=== PATIENT | female | born 1960 | race Two or more races ===

== ENCOUNTER 2016-06-02 14:11 | Emergency (ER) | payer MEDICAID ==
[~2016-06-02] VITALS: Ht 154.9 cm; Wt 86.2 kg
[2016-06-02 14:45] LABS: BILIRUBIN,URINE SMALL (NEG); GLUCOSE,URINE NEGATIVE (NEG); NITRITE,URINE NEGATIVE (NEG); PROTEIN,URINE 30 mg/dL (NEG-TRACE); UROBILINOGEN,URINE 0.2 mg/dL (0.2 mg/dL)
[2016-06-02 14:47] VITALS: BP 166/84
[2016-06-02 14:58] LABS: RBC,URINE TNTC /HPF (0-2)
[2016-06-02 14:59] LABS: BACTERIA,URINE FEW /HPF (0-FEW); SQUAMOUS EPITHELIAL CELL,UR MOD /LPF
[2016-06-02] MEDS ORDERED: NITR100C62 PO (15:16)
[2016-06-02] MEDS ORDERED: PHEN100T82 PO (15:16)
--- NOTE | 2016-06-02 15:16 | PHYS DOC ---
Past Medical History Past Medical History: No Pertinent History Past Surgical History: Appendectomy, Hysterectomy Alcohol Use: None Drug Use: None Adult General Chief Complaint Chief Complaint: BLOOD IN URINE [facility] HPI Patient is a 55 year old female presents emergency department stating that today she woke up and started having urinary frequency urgency or pain with urination. She states she is also been having some itching she denies any vaginal discharge. She denies any fever, chills or any nausea vomiting. She did state she took one Macrobid earlier today that was a friend's. She states that this medication had come from [facility]. She states she would prefer not to take the Macrobid that was provided to her she would is not sure of the safety. Review of Systems Review of Systems Constitutional: Denies fever or chills [] Eyes: Denies change in visual acuity, redness, or eye pain [] HENT: Denies nasal congestion or sore throat [] Respiratory: Denies cough or shortness of breath [] Cardiovascular: No additional information not addressed in HPI [] GI: Denies abdominal pain, nausea, vomiting, bloody stools or diarrhea [] : dysuria and hematuria [] Musculoskeletal: Denies back pain or joint pain [] Integument: Denies rash or skin lesions [] Neurologic: Denies headache, focal weakness or sensory changes [] Allergies Allergies Allergies Coded Allergies Type Severity Reaction Last Updated Verified No Known Drug Allergies 06/02/16 No Physical Exam Physical Exam Constitutional: Well developed, well nourished, no acute distress, non-toxic appearance. [] HENT: Normocephalic, atraumatic, bilateral external ears normal, oropharynx moist, no oral exudates, nose normal. [] Eyes: PERRLA, EOMI, conjunctiva normal, no discharge. [] Neck: Normal range of motion, no tenderness, supple, no stridor. [] Cardiovascular:Heart rate regular rhythm, no murmur [] Lungs & Thorax: Bilateral breath sounds clear to auscultation [] Skin: Warm, dry, no erythema, no rash. [] Back: No tenderness, no CVA tenderness. [] Extremities: No tenderness, no cyanosis, no clubbing, ROM intact, no edema. [] Neurologic: Alert and oriented X 3, normal motor function, normal sensory function, no focal deficits noted. [] Psychologic: Affect normal, judgement normal, mood normal. [] Current Patient Data Vital Signs Vital Signs Date Time Temp Pulse Resp B/P Pulse Ox O2 Delivery O2 Flow Rate FiO2 06/02/16 14:47 98.1 72 20 99 Room Air 98.1 Lab Values Laboratory Tests Test 06/02/16 14:33 Urine Collection Type Unknown Urine Color Dk yellow Urine Clarity Cloudy Urine pH 6.0 Urine Specific [place] 1.020 Urine Protein 30mg/dL (NEG-TRACE) Urine Glucose (UA) Negativemg/dL (NEG) Urine Ketones (Stick) Negativemg/dL (NEG) Urine Blood Large (NEG) Urine Nitrite Negative (NEG) Urine Bilirubin Small (NEG) Urine Urobilinogen Dipstick 0.2mg/dL (0.2 mg/dL) Urine Leukocyte Esterase Moderate (NEG) Urine RBC Tntc/HPF (0-2) Urine WBC 11-20/HPF (0-4) Urine Squamous Epithelial Cells Mod/LPF Urine Bacteria Few/HPF (0-FEW) Urine Mucus Mod/LPF EKG EKG [] Radiology/Procedures Radiology/Procedures [] Course & Med Decision Making Course & Med Decision Making Pertinent Labs and Imaging studies reviewed. (See chart for details) Urine was positive for blood as well as leukocyte Estrace. Does appear that the urine was contaminated. Patient is exhibiting signs of dysuria. Patient will be placed on Macrobid. Patient was encouraged to drink plenty of fluids such as water and cranberry juice. She was recommended to avoid cranberry juice cocktail , caffeine, carbonated beverages, citrus fruits and alcohol sees her considered irritants to the bladder. Patient was provided with signs and symptoms to return back to the emergency department. The patient agrees with discharge instructions, treatment regimens and follow-up recommendations. Patient will be discharged home in stable condition. [] Dragon Disclaimer Dragon Disclaimer This electronic medical record was generated, in whole or in part, using a voice recognition dictation system. Departure Departure Impression: Primary Impression: Dysuria Disposition: HOME, SELF-CARE Condition: STABLE Patient Instructions: Dysuria-Brief Additional Instructions: Activity as tolerated. Medications as prescribed. Pyridium will cause her urine to turn orange future. This will stating occluding. Drink plenty of fluids such as water and cranberry juice. Avoid cranberry juice cocktail, carbonate beverages, caffeine, citrus fruits and alcohol sees her considered irritants to the bladder. Follow-up through primary care physician in the next 7-10 days. Return back to emergency prior signs symptoms become worse. Scripts Nitrofurantoin Monohyd/M-Cryst (Macrobid 100 Mg Capsule)100 Mg Capsule1 Cap PO BID #14 CAP Prov:PABLO LYN NP 06/02/16 Phenazopyridine Hcl (Pyridium)100 Mg [id number] Mg PO TID #9 TAB Prov:PABLO LYN INDUSTRIAL MANUFACTURING TECHNICIAN 06/02/16 PABLO LYN INDUSTRIAL MANUFACTURING TECHNICIAN Jun 02, 2016 15:16
== END 2016-06-02 15:20 | disposition home or self-care (01) ==
LOC: ER 14:11
DX: R30.0 Dysuria (principal)
CPT/HCPCS: 81001; 87086; 87186; 99284

== ENCOUNTER 2016-11-20 10:26 | Emergency (ER) | payer MEDICAID ==
[~2016-11-20] VITALS: Ht 154.9 cm; Wt 90.7 kg
[~2016-11-20 10:26] MED LIST: NITR100C62 PO; PHEN100T82 PO
[2016-11-20 10:33] VITALS: BP 153/77
--- NOTE | 2016-11-20 11:20 | PHYS DOC ---
Past Medical History Past Medical History: No Pertinent History Past Surgical History: Appendectomy, Hysterectomy Alcohol Use: None Drug Use: None Adult General Chief Complaint Chief Complaint: UPPER EXTREMITY PAIN HPI HPI Patient is a 56 year old female presents to the emergency department with a history of right upper arm/shoulder pain and discomfort. Patient states that she had been moving tables and pushing and pulling on them last week when she was at work. She states over the weekend she continued to move some tables and started developing the pain and discomfort. She describes the pain as prickling type pain. He states that she had taken some Tylenol for pain and discomfort with minimal relief. Patient denies any previous history of right shoulder arm pain. She is right-hand dominant. Review of Systems Review of Systems Constitutional: Denies fever or chills [] Eyes: Denies change in visual acuity, redness, or eye pain [] HENT: Denies nasal congestion or sore throat [] Respiratory: Denies cough or shortness of breath [] Cardiovascular: No additional information not addressed in HPI [] GI: Denies abdominal pain, nausea, vomiting, bloody stools or diarrhea [] : Denies dysuria or hematuria [] Musculoskeletal: Denies back pain. C/o right shoulder and right upper arm pain Integument: Denies rash or skin lesions [] Neurologic: Denies headache, focal weakness or sensory changes [] Endocrine: Denies polyuria or polydipsia [] Allergies Allergies Allergies Coded Allergies Type Severity Reaction Last Updated Verified No Known Drug Allergies 06/02/16 No Physical Exam Physical Exam Constitutional: Well developed, well nourished, no acute distress, non-toxic appearance. [] HENT: Normocephalic, atraumatic, bilateral external ears normal, oropharynx moist, no oral exudates, nose normal. [] Eyes: PERRLA, EOMI, conjunctiva normal, no discharge. [] Neck: Normal range of motion, no tenderness, supple, no stridor. [] Cardiovascular:Heart rate regular rhythm, no murmur [] Lungs & Thorax: Bilateral breath sounds clear to auscultation [] Skin: Warm, dry, no erythema, no rash. [] Back: No tenderness, no CVA tenderness. [] Extremities: Right tenderness noted in the deltoid and rotator cuff area, no cyanosis, no clubbing, ROM intact, no edema. Peripheral pulses 2+ cap refill brisk less than 2 seconds. Patient with slightly less strength on the right than the left. Neurologic: Alert and oriented X 3, normal motor function, normal sensory function, no focal deficits noted. [] Psychologic: Affect normal, judgement normal, mood normal. [] Current Patient Data Vital Signs Vital Signs Date Time Temp Pulse Resp B/P (MAP) Pulse Ox O2 Delivery O2 Flow Rate FiO2 11/20/16 10:33 97.7 77 20 98 Room Air 97.7 EKG EKG [] Radiology/Procedures Radiology/Procedures [] Course & Med Decision Making Course & Med Decision Making Pertinent Labs and Imaging studies reviewed. (See chart for details) Patient will be placed in a sling with recommendations for ice packs on 20 minutes off 20 minutes several times a day. Patient was instructed to use ibuprofen 800 mg every 8 hours. Recommended taking this with food to prevent GI upset. Patient will be provided with orthopedic to follow-up with. Signs symptoms to return back to emergency department as been provided. Patient agrees with discharge instructions treatment regimens and follow-up recommendations. [] Dragon Disclaimer Dragon Disclaimer This electronic medical record was generated, in whole or in part, using a voice recognition dictation system. Departure Departure Impression: Primary Impression: Pain of right upper arm Disposition: 01 HOME, SELF-CARE Condition: STABLE Referrals: NO PCP (PCP) AMELIA LINDO II, MD Patient Instructions: Arm Sling Use, [id number], Shoulder Pain, [id number] Additional Instructions: Activity as tolerated. Ibuprofen 800 mg every 8 hours with food stop taking few develop an upset stomach. Ice packs on 20 minutes off 20 minutes several times a day. Elevation as much as possible. Use the sling as much as possible to relieve some of the pain and discomfort. You may wear this for the next 5-7 days. Should however take your arm out of the sling 3-4 times a day and do active range of motion. Follow-up with orthopedic in the next 7-10 days. Return back to emergency prior signs symptoms become worse PABLO LYN APRN Nov 20, 2016 11:20
== END 2016-11-20 11:25 | disposition home or self-care (01) ==
LOC: ER 10:26
DX: M79.621 Pain in right upper arm (principal); M25.511 Pain in right shoulder; Z90.49 Acquired absence of other specified parts of digestive tract; Z90.710 Acquired absence of both cervix and uterus
CPT/HCPCS: 99282